=== PATIENT | female | born 2000 ===

== ENCOUNTER 2022-07-02 17:11 | Emergency (ER) | payer SELFPAY | END 2022-07-02 18:45 | disposition left against medical advice (07) | LOC: MW.ED 17:11 | DX: Z53.21 Procedure and treatment not carried out due to patient leaving prior to being seen by health care provider (principal) ==

== ENCOUNTER 2022-08-28 10:37 | Emergency (ER) | payer SELFPAY ==
[2022-08-28 11:49] LABS: CARBON DIOXIDE,CO2 24.9 mmol/L (21.0-32.0); POTASSIUM,K 3.6 mmol/L (3.5-5.1)
[2022-08-28] MEDS ORDERED: Acetaminophen 325 MG Tab PO ONE (11:50)
[2022-08-28 14:15] LABS: C. TRACHOMATIS BY PCR NOT DETECTED; N. GONORRHOEAE BY PCR NOT DETECTED
== END 2022-08-28 14:50 | disposition home or self-care (01) ==
LOC: MW.ED 10:37
DX: O20.0 Threatened abortion (principal); Z3A.01 Less than 8 weeks gestation of pregnancy
CPT/HCPCS: 36415; 76817; 80053; 81001; 84702; 84703; 85025; 87480; 87491; 87510; 87591; 87660; 99284; A9270

== ENCOUNTER 2023-07-28 00:01 | Inpatient (IN) | payer MEDICAID ==
[2023-07-28] MEDS ORDERED: Terbutaline 1 MG/ML SDV SUBCUT PRN ×2 (00:10→00:16)
[2023-07-28] MEDS ORDERED: Misoprostol 25 MCG (1/4 of 100 MCG) Tab VAG PRN ×4 (00:10→05:00)
[2023-07-28] MEDS ORDERED: Oxytocin/0.9 % Sodium Chloride 30 UNIT/500 ML BAG IV SCH ×3 (00:15→00:30)
[2023-07-28] MEDS ORDERED: Sodium Chloride 0.9% 10 ML Syringe FLUSH PRN (00:16)
[2023-07-28] MEDS ORDERED: Water For Irrigation,Sterile 1,000 ML Container IRR PRN (00:16)
[2023-07-28] MEDS ORDERED: Sodium Chloride 0.9% 20 ML SDV IV PRN (00:16)
[2023-07-28] MEDS ORDERED: Lidocaine 1% 50 ML MDV INJECT PRN (00:16)
[2023-07-28] MEDS ORDERED: Misoprostol 200 MCG Tab PO PRN (00:16)
[2023-07-28] MEDS ORDERED: Methylergonovine 0.2 MG/1 ML Amp IM PRN (00:16)
[2023-07-28] MEDS ORDERED: Sodium Chloride 0.9% 2.5 ML Syringe FLUSH PRN (00:16)
[2023-07-28] MEDS ORDERED: Tranexamic Acid IN NACL,ISO-OS 1,000 MG in Premix Bag 1 BAG IV PRN ×2 (00:16)
[2023-07-28] MEDS ORDERED: Carboprost Tromethamine 250 MCG/1 mL Vial IM PRN (00:16)
[2023-07-28 00:56] LABS: HEMOGLOBIN 11.6 g/dL (12.0-16.0); MEAN CORPUSCULAR HEMOGLOBIN 29.3 pg (27.0-32.0); MEAN CORPUSCULAR HGB CONC 34.1 g/dL (31.0-37.0); MEAN CORPUSCULAR VOLUME 85.9 fL (80.0-98.0); MEAN PLATELET VOLUME 11.6 fL (7.40-12.00); RED BLOOD CELL COUNT 3.96 M/uL (4.30-5.90); WHITE BLOOD CELL COUNT,WBC 10.63 K/uL (4.0-11.0)
[2023-07-28] MEDS ORDERED: Misoprostol 25 MCG (1/4 of 100 MCG) Tab PO ONE (01:00)
[2023-07-28] MEDS: Misoprostol 25 MCG (1/4 of 100 MCG) Tab PO SCH (05:47)
[2023-07-28] MEDS: Nalbuphine 10 MG/0.5 ML Syringe IVPUSH SCH (06:31)
[2023-07-28] MEDS: Lactated Ringers 1,000 ML IV SCH ×3 (06:54→16:56)
[2023-07-28] MEDS ORDERED: ePHEDrine 50 MG/ML SDV IVPUSH PRN ×2 (10:24)
[2023-07-28] MEDS ORDERED: Phenylephrine HCl 0.5 MG/5 ML AMP IVPUSH PRN (10:24)
[2023-07-28] MEDS ORDERED: Ropivacaine HCl/PF 400 MG in Premix Bag 1 BAG EPIDUR SCH (10:30)
[2023-07-28] MEDS ORDERED: Dexmedetomidine 200 MCG/2 ML SDV ONE (11:48)
[2023-07-28] MEDS ORDERED: Bupivacaine 0.25% 10 ML SDV ONE (11:48)
[2023-07-28] MEDS: Ondansetron 4 MG/2 ML SDV IVPUSH PRN (12:03)
[2023-07-29] MEDS ORDERED: fentaNYL 100 MCG/2 ML SDV ONE (07:49)
[2023-07-29] MEDS ORDERED: Bupivacaine 0.25% 10 ML SDV ONE (07:49)
[2023-07-29] MEDS: Lactated Ringers 1,000 ML IV SCH ×2 (10:13→17:57)
[2023-07-29] MEDS ORDERED: Witch Hazel Medicated Pads 40/Jar TOP ONE (15:11)
[2023-07-29] MEDS ORDERED: Benzocaine/Menthol 20%-0.5% Spray 78 GM Cannister ONE (15:11)
[2023-07-29] MEDS ORDERED: Ibuprofen 400 MG Tab PO PRN (15:20)
[2023-07-29] MEDS ORDERED: Lanolin 100% Cream 7 GM Tube TOP PRN (15:20)
[2023-07-29] MEDS ORDERED: Bisacodyl 10 MG Supp RECTAL PRN (15:20)
[2023-07-29] MEDS ORDERED: Acetaminophen 500 MG Tab PO PRN (15:20)
[2023-07-29] MEDS: Ibuprofen 800 MG Tab PO PRN ×2 (16:01→22:10)
[2023-07-29] MEDS ORDERED: Labetalol 100 MG Tab ONE (16:50)
[2023-07-29] MEDS: Benzocaine/Menthol 20%-0.5% Spray 78 GM Cannister TOP PRN (17:06)
[2023-07-29] MEDS: Witch Hazel Medicated Pads 40/Jar TOP PRN (17:08)
[2023-07-29] MEDS: Acetaminophen 500 MG Tab PO PRN (17:51)
[2023-07-29] MEDS: Docusate Sodium 100 MG Cap PO PRN (22:12)
[2023-07-29] MEDS: Labetalol 100 MG Tab PO SCH (22:14)
[2023-07-30] MEDS: Acetaminophen 500 MG Tab PO PRN ×3 (02:10→19:37)
[2023-07-30 05:56] LABS: HEMATOCRIT 24.8 % (36.0-46.0); HEMOGLOBIN 8.4 g/dL (12.0-16.0)
[2023-07-30] MEDS: Labetalol 100 MG Tab PO SCH ×2 (06:10→14:35)
[2023-07-30] MEDS: Ibuprofen 800 MG Tab PO PRN ×2 (06:15→17:29)
[2023-07-30] MEDS: Witch Hazel Medicated Pads 40/Jar TOP PRN (19:36)
[2023-07-30 22:15] LABS: APPEARANCE,URINE SLT CLOUDY; COLOR,URINE RED; GLUCOSE,URINE NEGATIVE (NEGATIVE); KETONES,URINE TRACE mg/dL (NEGATIVE); LEUKOCYTE ESTERASE,URINE MODERATE (NEGATIVE); NITRITE,URINE POSITIVE (NEGATIVE); OCCULT BLOOD,URINE LARGE (NEGATIVE); PROTEIN,URINE >=300 mg/dL (NEGATIVE)
[2023-07-30 22:16] LABS: BILIRUBIN,URINE MODERATE (NEGATIVE)
[2023-07-31 01:54] LABS: BACTERIA,URINE FEW (NEGATIVE); EPITHELIAL CELLS,URINE FEW (NONE-FEW); MUCUS,URINE LIGHT (NONE-MOD); RBC,URINE 30-40 (0-2/HPF)
[2023-07-31] MEDS: Ibuprofen 800 MG Tab PO PRN ×3 (02:20→22:21)
[2023-07-31] MEDS: Nitrofurantoin Monohydrate/Macrocrystalline 100 MG Cap PO SCH ×2 (02:20→14:09)
[2023-07-31] MEDS ORDERED: cefTRIAXone 1 GM Vial IV ONE (03:11)
[2023-07-31] MEDS ORDERED: Sodium Chloride 0.9% 2.5 ML Syringe FLUSH PRN (03:11)
[2023-07-31] MEDS ORDERED: Sodium Chloride 0.9% 10 ML Syringe FLUSH PRN (03:11)
[2023-07-31] MEDS ORDERED: Sodium Chloride 0.9% 50 ML ONE (03:45)
[2023-07-31 03:56] LABS: BASOPHILS PERCENT AUTO 0.1 % (0.0-1.5); EOSINOPHILS PERCENT AUTO 0.3 % (0.0-7.0); LYMPHOCYTES ABSOLUTE AUTO 0.9 K/uL (0.6-2.4); LYMPHOCYTES PERCENT AUTO 6.4 % (16.0-40.0); MEAN CORPUSCULAR HEMOGLOBIN 29.9 pg (27.0-32.0); MEAN CORPUSCULAR HGB CONC 33.3 g/dL (31.0-37.0); MEAN CORPUSCULAR VOLUME 89.6 fL (80.0-98.0); MONOCYTES ABSOLUTE AUTO 0.6 K/uL (0.0-0.8); MONOCYTES PERCENT AUTO 4.4 % (0.0-15.0); NEUTROPHILS PERCENT AUTO 88.8 % (48.0-80.0); PLATELET COUNT,PLT 204 K/uL (150-400); RED BLOOD CELL COUNT 2.68 M/uL (4.30-5.90); WHITE BLOOD CELL COUNT,WBC 13.54 K/uL (4.0-11.0)
[2023-07-31] MEDS: Acetaminophen 500 MG Tab PO PRN ×2 (04:07→08:28)
[2023-07-31 04:31] LABS: A/G RATIO 0.5 (0.9-1.6); BILIRUBIN TOTAL 0.5 mg/dL (0.2-1.0); CALCIUM 8.6 mg/dL (8.5-10.1); CARBON DIOXIDE,CO2 23.1 mmol/L (21.0-32.0); CREATININE 0.9 mg/dL (0.6-1.0); EST CRCL DRUG DOSING (CG) 73.36 mL/min; POTASSIUM,K 4.2 mmol/L (3.5-5.1); PROTEIN TOTAL,TP 5.9 g/dL (6.4-8.2)
[2023-07-31] MEDS ORDERED: Clindamycin Phosphate in D5W 900 MG in Premix Bag 1 BAG IV SCH ×2 (09:00)
[2023-07-31] MEDS ORDERED: Sodium Chloride 0.9% 1,000 ML IV ONE (09:30)
[2023-07-31] MEDS: Clindamycin Phosphate in D5W 600 MG in Premix Bag 1 BAG IV SCH ×2 (10:39)
[2023-07-31] MEDS: Docusate Sodium 100 MG Cap PO PRN (10:41)
[2023-07-31] MEDS ORDERED: Sodium Chloride 0.9% 1,000 ML IV SCH ×2 (10:45→11:45)
[2023-07-31] MEDS: Clindamycin Phosphate in D5W 300 MG in Premix Bag 1 BAG IV SCH ×2 (11:25)
[2023-07-31 13:04] LABS: A/G RATIO 0.5 (0.9-1.6); ALBUMIN 1.9 g/dL (3.4-5.0); BILIRUBIN TOTAL 0.5 mg/dL (0.2-1.0); CARBON DIOXIDE,CO2 21.8 mmol/L (21.0-32.0); CREATININE 0.8 mg/dL (0.6-1.0); EST CRCL DRUG DOSING (CG) 82.53 mL/min; POTASSIUM,K 3.7 mmol/L (3.5-5.1); PROTEIN TOTAL,TP 5.6 g/dL (6.4-8.2)
[2023-07-31] MEDS: Acetaminophen/oxyCODONE 325-5 MG Tab PO PRN ×2 (14:33→19:14)
[2023-07-31] MEDS ORDERED: Sodium Chloride 0.9% 250 ML IV SCH (17:30)
[2023-07-31] MEDS ORDERED: Clindamycin Phosphate in D5W 600 MG in Premix Bag 1 BAG IV SCH ×4 (20:00→23:00)
[2023-07-31] MEDS ORDERED: Clindamycin Phosphate in D5W 300 MG in Premix Bag 1 BAG IV SCH ×4 (20:30→23:30)
[2023-07-31] MEDS: Ondansetron 4 MG/2 ML SDV IVPUSH PRN (20:56)
[2023-07-31 21:11] LABS: LACTIC ACID 0.8 mmol/L (0.4-2.0)
[2023-08-01] MEDS: Witch Hazel Medicated Pads 40/Jar TOP PRN ×3 (00:47→20:19)
[2023-08-01] MEDS: Benzocaine/Menthol 20%-0.5% Spray 78 GM Cannister TOP PRN ×2 (00:47→20:18)
[2023-08-01] MEDS: Lactated Ringers 1,000 ML IV SCH ×3 (01:20→13:26)
[2023-08-01] MEDS: Piperacillin/Tazobactam 4.5 GM in Sodium Chloride 0.9% 100 ML IV SCH ×4 (01:44→20:19)
[2023-08-01] MEDS ORDERED: GENTAMICIN IV SCH ×2 (03:00)
[2023-08-01] MEDS ORDERED: DEXTROSE 5% IV SCH ×2 (03:00)
[2023-08-01] MEDS ORDERED: Lactated Ringers 1,000 ML IV SCH (03:00)
[2023-08-01] MEDS ORDERED: WATER IV SCH ×2 (03:00)
[2023-08-01 05:43] LABS: HEMATOCRIT 21.5 % (37.0-47.0); HEMOGLOBIN 7.3 g/dL (12.0-16.0); MEAN CORPUSCULAR HEMOGLOBIN 29.8 pg (28.0-32.0); MEAN CORPUSCULAR VOLUME 87.8 fL (83.0-99.0); MEAN PLATELET VOLUME 10.2 fL (9.4-12.3); PLATELET COUNT,PLT 174 K/uL (150-400); RED BLOOD CELL COUNT 2.45 M/uL (4.10-5.30); WHITE BLOOD CELL COUNT,WBC 12.21 K/uL (3.9-11.3)
[2023-08-01 06:07] LABS: LACTIC ACID 0.8 mmol/L (0.4-2.0)
[2023-08-01] MEDS: Ibuprofen 800 MG Tab PO PRN ×2 (07:13→13:28)
[2023-08-01] MEDS: Acetaminophen 500 MG Tab PO PRN (15:02)
[2023-08-02] MEDS: Piperacillin/Tazobactam 4.5 GM in Sodium Chloride 0.9% 100 ML IV SCH ×4 (01:18→18:59)
[2023-08-02] MEDS: Acetaminophen 325 MG Tab PO PRN ×2 (02:08→08:52)
[2023-08-02] MEDS ORDERED: Acetaminophen 500 MG Tab PO ONE (04:08)
[2023-08-02 06:15] LABS: BASOPHILS ABSOLUTE AUTO 0.02 K/uL (0.00-0.20); BASOPHILS PERCENT AUTO 0.1 % (0.0-1.0); EOSINOPHILS ABSOLUTE AUTO 0.07 K/uL (0.00-0.45); EOSINOPHILS PERCENT AUTO 0.5 % (0.0-6.0); HEMATOCRIT 24.1 % (37.0-47.0); HEMOGLOBIN 8.4 g/dL (12.0-16.0); LYMPHOCYTES ABSOLUTE AUTO 1.34 K/uL (1.00-4.80); LYMPHOCYTES PERCENT AUTO 9.7 % (24.0-44.0); MEAN CORPUSCULAR HEMOGLOBIN 30.4 pg (28.0-32.0); MEAN CORPUSCULAR HGB CONC 34.9 g/dL (32.0-36.0); MEAN CORPUSCULAR VOLUME 87.3 fL (83.0-99.0); MEAN PLATELET VOLUME 10.3 fL (9.4-12.3); MONOCYTES ABSOLUTE AUTO 0.98 K/uL (0.00-0.80); MONOCYTES PERCENT AUTO 7.1 % (0.0-8.0); NEUTROPHILS ABSOLUTE AUTO 11.3 K/uL (1.8-7.7); NEUTROPHILS PERCENT AUTO 81.4 % (41.0-71.0); PLATELET COUNT,PLT 189 K/uL (150-400); RED BLOOD CELL COUNT 2.76 M/uL (4.10-5.30); WHITE BLOOD CELL COUNT,WBC 13.87 K/uL (3.9-11.3)
[2023-08-02 06:42] LABS: A/G RATIO 0.4 (0.9-1.6); ALBUMIN 1.9 g/dL (3.4-5.0); BILIRUBIN TOTAL 0.6 mg/dL (0.2-1.0); CALCIUM 8.1 mg/dL (8.5-10.1); CARBON DIOXIDE,CO2 24.6 mmol/L (21.0-32.0); CREATININE 0.6 mg/dL (0.6-1.0); EST CRCL DRUG DOSING (CG) 110.04 mL/min; MAGNESIUM 1.6 mg/dL (1.8-2.4); POTASSIUM,K 3.2 mmol/L (3.5-5.1); PROTEIN TOTAL,TP 6.3 g/dL (6.4-8.2)
[2023-08-02] MEDS ORDERED: Sodium Chloride 0.9% 250 ML IV ONE (08:00)
[2023-08-02] MEDS ORDERED: Magnesium Sulfate/Water 4 GM in Premix Bag 1 BAG IV ONE (08:00)
[2023-08-02] MEDS ORDERED: LORazepam 1 MG Tab PO ONE (17:48)
[2023-08-02 19:23] LABS: BASOPHILS ABSOLUTE AUTO 0.04 K/uL (0.00-0.20); BASOPHILS PERCENT AUTO 0.3 % (0.0-1.0); EOSINOPHILS ABSOLUTE AUTO 0.23 K/uL (0.00-0.45); HEMATOCRIT 25.6 % (37.0-47.0); HEMOGLOBIN 8.9 g/dL (12.0-16.0); LYMPHOCYTES ABSOLUTE AUTO 1.59 K/uL (1.00-4.80); LYMPHOCYTES PERCENT AUTO 13.6 % (24.0-44.0); MEAN CORPUSCULAR HEMOGLOBIN 29.6 pg (28.0-32.0); MEAN CORPUSCULAR HGB CONC 34.8 g/dL (32.0-36.0); MEAN PLATELET VOLUME 10.2 fL (9.4-12.3); MONOCYTES ABSOLUTE AUTO 0.77 K/uL (0.00-0.80); MONOCYTES PERCENT AUTO 6.6 % (0.0-8.0); NEUTROPHILS ABSOLUTE AUTO 8.8 K/uL (1.8-7.7); NEUTROPHILS PERCENT AUTO 75.9 % (41.0-71.0); PLATELET COUNT,PLT 233 K/uL (150-400); RED BLOOD CELL COUNT 3.01 M/uL (4.10-5.30); WHITE BLOOD CELL COUNT,WBC 11.65 K/uL (3.9-11.3)
[2023-08-02] MEDS: Misoprostol 25 MCG (1/4 of 100 MCG) Tab PO SCH ×3 (20:42→22:06)
[2023-08-03] MEDS: Piperacillin/Tazobactam 4.5 GM in Sodium Chloride 0.9% 100 ML IV SCH ×2 (01:05→06:42)
[2023-08-03] MEDS: Nalbuphine 10 MG/0.5 ML Syringe IVPUSH SCH (03:00)
[2023-08-03] MEDS: Misoprostol 25 MCG (1/4 of 100 MCG) Tab PO SCH ×8 (03:02→03:15)
[2023-08-03] MEDS: Clindamycin Phosphate in D5W 600 MG in Premix Bag 1 BAG IV SCH ×2 (03:41)
[2023-08-03] MEDS: Clindamycin Phosphate in D5W 300 MG in Premix Bag 1 BAG IV SCH ×2 (03:41)
[2023-08-03 06:21] LABS: BASOPHILS ABSOLUTE AUTO 0.04 K/uL (0.00-0.20); BASOPHILS PERCENT AUTO 0.4 % (0.0-1.0); EOSINOPHILS ABSOLUTE AUTO 0.41 K/uL (0.00-0.45); EOSINOPHILS PERCENT AUTO 3.6 % (0.0-6.0); HEMATOCRIT 24.8 % (37.0-47.0); HEMOGLOBIN 8.6 g/dL (12.0-16.0); LYMPHOCYTES ABSOLUTE AUTO 1.92 K/uL (1.00-4.80); LYMPHOCYTES PERCENT AUTO 16.9 % (24.0-44.0); MEAN CORPUSCULAR HEMOGLOBIN 30.2 pg (28.0-32.0); MEAN CORPUSCULAR HGB CONC 34.7 g/dL (32.0-36.0); MEAN PLATELET VOLUME 10.3 fL (9.4-12.3); MONOCYTES ABSOLUTE AUTO 0.79 K/uL (0.00-0.80); MONOCYTES PERCENT AUTO 6.9 % (0.0-8.0); NEUTROPHILS ABSOLUTE AUTO 7.8 K/uL (1.8-7.7); NEUTROPHILS PERCENT AUTO 68.8 % (41.0-71.0); PLATELET COUNT,PLT 259 K/uL (150-400); RED BLOOD CELL COUNT 2.85 M/uL (4.10-5.30); WHITE BLOOD CELL COUNT,WBC 11.39 K/uL (3.9-11.3)
[2023-08-03 07:22] LABS: A/G RATIO 0.4 (0.9-1.6); ALBUMIN 1.9 g/dL (3.4-5.0); BILIRUBIN TOTAL 0.3 mg/dL (0.2-1.0); CALCIUM 8.4 mg/dL (8.5-10.1); CARBON DIOXIDE,CO2 25.9 mmol/L (21.0-32.0); CREATININE 0.6 mg/dL (0.6-1.0); EST CRCL DRUG DOSING (CG) 110.04 mL/min; POTASSIUM,K 3.5 mmol/L (3.5-5.1); PROTEIN TOTAL,TP 6.4 g/dL (6.4-8.2)
== END 2023-08-03 14:00 | disposition home or self-care (01) | DRG 805 ==
LOC: MW.OB 00:01 → OBSVTOIN 07-29 14:47 → MW.OB 07-29 20:21 → MW.MS 08-01 17:16
PROVIDERS: ADMIT Obstetrics & Gynecology Obstetrics; ATTEND Family Medicine
PROC: 10E0XZZ Delivery of Products of Conception, External Approach (ICD-10-PCS; principal; 2023-07-29)
PROC: 0KQM0ZZ Repair Perineum Muscle, Open Approach (ICD-10-PCS; 2023-07-29)
PROC: 3E0P7VZ Introduction of Hormone into Female Reproductive, Via Natural or Artificial Opening (ICD-10-PCS; 2023-07-29)
PROC: 3E0R3BZ Introduction of Anesthetic Agent into Spinal Canal, Percutaneous Approach (ICD-10-PCS; 2023-07-29)
PROC: 00HU33Z Insertion of Infusion Device into Spinal Canal, Percutaneous Approach (ICD-10-PCS; 2023-07-29)
PROC: 3E03329 Introduction of Other Anti-infective into Peripheral Vein, Percutaneous Approach (ICD-10-PCS; 2023-07-29)
DX: O36.63X0 Maternal care for excessive fetal growth, third trimester, not applicable or unspecified (principal); A41.51 Sepsis due to Escherichia coli [E. coli]; Z37.0 Single live birth; O86.04 Sepsis following an obstetrical procedure; R65.20 Severe sepsis without septic shock; O98.83 Other maternal infectious and parasitic diseases complicating the puerperium; N12 Tubulo-interstitial nephritis, not specified as acute or chronic; N17.9 Acute kidney failure, unspecified; O69.81X0 Labor and delivery complicated by cord around neck, without compression, not applicable or unspecified; O42.12 Full-term premature rupture of membranes, onset of labor more than 24 hours following rupture; O99.02 Anemia complicating childbirth; D64.9 Anemia, unspecified; O77.0 Labor and delivery complicated by meconium in amniotic fluid; O70.1 Second degree perineal laceration during delivery; Z3A.39 39 weeks gestation of pregnancy
CPT/HCPCS: 36415; 51702; 85027; 86592; 86850; 86900; 86901; A9270 ×4; J2300; J2371; J2405; J2590; J2795; J3010; J3490 ×2; J7120 ×4; 01967; 36430; 59025; 59409; 71046; 71046-26; 80053; 81001; 81003; 83605; 83735; 85014; 85018; 85025; 86920; 87040; 87077; 87086; 87186; 99223; 99232; J0696; J1580; J2543; J3475; J7030; J7050; J7060; P9016

== ENCOUNTER 2023-12-23 10:19 | Emergency (ER) | payer MEDICAID | END 2023-12-23 11:32 | disposition home or self-care (01) | LOC: MW.ED 10:19 | DX: F32.A Depression, unspecified (principal); Z79.899 Other long term (current) drug therapy | CPT/HCPCS: 99283 ==